=== PATIENT | female | born 1980 | race Caucasian/White ===

== ENCOUNTER 2019-12-29 19:54 | Emergency (ER) | payer MEDICARE, MEDICAID ==
[~2019-12-29] VITALS: Ht 157.5 cm; Wt 97.7 kg
[~2019-12-29 19:54] MED LIST: GLUCOPHAGE500 MG/TAB PO; NAPROSYN 2250 MG/TAB PO; OXYCONTIN 10MG10 MG PO; PERCOCET 325 MG1 TA2 PO; PRINIVIL10 MG PO; ULTRAM 50MG TAB50 MG PO; [UNRECOGNIZED DRUG - REMARK]
[2019-12-29 19:56] VITALS: TEMP 97
[2019-12-29 20:28] LABS: BASO % 0.4 % (0.0-2.0); EOS # 0.2 (0.0-0.7); EOS % 2.6 % (0-4.0); GRAN # 4.3 (1.4-6.5); GRAN % 52.8 % (42.2-75.2); HEMATOCRIT 48.3 % (37.0-47.0); HEMOGLOBIN 17.1 g/dl (12.5-16.0); LYMPH % 37.2 % (20.0-51.0); MEAN CELL VOLUME 84 fl (80.0-100.0); MEAN CORPUSCULAR HEMOGLOBIN 30 pg (27.0-31.0); MEAN CORPUSCULAR HGB CONC 35 g/dl (33.0-37.0); MEAN PLATELET VOLUME 10.4 fl (7.4-10.4); MONO # 0.5 (0.1-0.6); MONO % 6.6 % (1.7-9.3); PLATELET COUNT 281 K/mm3 (130-400); RED BLOOD COUNT 5.72 M/mm3 (4.10-5.30); REDCELL DISTRIBUTION WIDTH-CV 12.2 % (11.5-14.5)
[2019-12-29 20:38] LABS: ALANINE AMINOTRANSFERASE 33 U/L (4-34); ALBUMIN 4.4 gm/dL (3.5-5.0); ALKALINE PHOSPHATASE 54 U/L (50-136); ANION GAP 10 mmol/L (7-16); AST,SGOT 34 U/L (15-37); BILIRUBIN,TOTAL 0.9 mg/dL (0.0-1.0); BLOOD UREA NITROGEN 12 mg/dL (7-17); CALCIUM 9.6 mg/dL (8.4-10.2); CARBON DIOXIDE 23 mmol/L (22-30); CHLORIDE 99 mmol/L (98-107); CREATININE, serum 0.63 (0.52-1.25); GLUCOSE 344 mg/dL (74-106); POTASSIUM 4.3 mmol/L (3.4-5.0); SODIUM 132 mmol/L (137-145); TOTAL PROTEIN 7.6 gm/dL (6.4-8.2)
[2019-12-29 21:08] LABS: TROPONIN-I < 0.012 ng/mL (0.000-0.035)
[2019-12-29] MEDS ORDERED: COMPAZINE 110 MG/TAB PO (22:12)
[2019-12-29] MEDS ORDERED: GLUCOPHAGE500 MG/TAB PO (22:12)
[2019-12-29 22:15] VITALS: BP 128/86; PULSE 89
== END 2019-12-29 22:23 | disposition home or self-care (01) ==
LOC: COL.ER 19:54
PROVIDERS: Emergency Medicine
DX: E11.65 Type 2 diabetes mellitus with hyperglycemia (principal); R07.9 Chest pain, unspecified; R51 Headache; I10 Essential (primary) hypertension; E66.9 Obesity, unspecified; E03.9 Hypothyroidism, unspecified; Z95.0 Presence of cardiac pacemaker; Z79.84 Long term (current) use of oral hypoglycemic drugs
CPT/HCPCS: J0780; J1200; J7030

== ENCOUNTER 2020-02-27 11:12 | Emergency (ER) | payer MEDICARE, MEDICAID ==
[~2020-02-27] VITALS: Ht 157.5 cm; Wt 95.9 kg
[~2020-02-27 11:12] MED LIST changes: +COMPAZINE 110 MG/TAB PO
[2020-02-27 11:18] VITALS: TEMP 97.9
[2020-02-27] MEDS ORDERED: FLEXERIL 1010 MG/TAB PO (12:49)
[2020-02-27] MEDS ORDERED: NAPROSYN500 MG PO (12:49)
[2020-02-27 12:57] VITALS: BP 147/96; PULSE 79
== END 2020-02-27 12:59 | disposition home or self-care (01) ==
LOC: COL.ER 11:12
DX: M54.5 Low back pain (principal); E11.9 Type 2 diabetes mellitus without complications; I10 Essential (primary) hypertension; F32.9 Major depressive disorder, single episode, unspecified; Z98.890 Other specified postprocedural states; Z90.710 Acquired absence of both cervix and uterus; Z79.84 Long term (current) use of oral hypoglycemic drugs
CPT/HCPCS: J1885

== ENCOUNTER 2020-06-17 13:58 | Emergency (ER) | payer MEDICARE, MEDICAID ==
[~2020-06-17] VITALS: Ht 157.5 cm; Wt 97.7 kg
[~2020-06-17 13:58] MED LIST changes: +FLEXERIL 1010 MG/TAB PO; +NAPROSYN500 MG PO
[2020-06-17 14:00] VITALS: TEMP 97.5
[2020-06-17] MEDS ORDERED: IBU400 MG (14:12)
[2020-06-17] MEDS ORDERED: JANUMXR1000-50 (14:13)
[2020-06-17] MEDS ORDERED: SYNTHROID0.05 MG/TA PO (14:14)
[2020-06-17] MEDS ORDERED: VIIBRYD10 MG PO (14:15)
[2020-06-17] MEDS ORDERED: ABILIFY5 MG (14:15)
[2020-06-17 15:04] LABS: BASO % 0.5 % (0.0-2.0); EOS # 0.3 (0.0-0.7); EOS % 4.6 % (0-4.0); GRAN # 2.4 (1.4-6.5); GRAN % 43.7 % (42.2-75.2); HEMATOCRIT 43.5 % (37.0-47.0); HEMOGLOBIN 15.3 g/dl (12.5-16.0); LYMPH # 2.4 (1.2-3.4); LYMPH % 43.1 % (20.0-51.0); MEAN CELL VOLUME 87 fl (80.0-100.0); MEAN CORPUSCULAR HEMOGLOBIN 31 pg (27.0-31.0); MEAN CORPUSCULAR HGB CONC 35 g/dl (33.0-37.0); MEAN PLATELET VOLUME 9.8 fl (7.4-10.4); MONO # 0.4 (0.1-0.6); MONO % 7.9 % (1.7-9.3); PLATELET COUNT 274 K/mm3 (130-400); RED BLOOD COUNT 5.02 M/mm3 (4.10-5.30); REDCELL DISTRIBUTION WIDTH-CV 12.2 % (11.5-14.5)
[2020-06-17 15:21] LABS: ALBUMIN 4.5 gm/dL (3.5-5.0); BILIRUBIN,TOTAL 0.7 mg/dL (0.0-1.0); CALCIUM 9.7 mg/dL (8.4-10.2); CREATININE, serum 0.65 (0.52-1.25); POTASSIUM 4.1 mmol/L (3.4-5.0); TOTAL PROTEIN 7.4 gm/dL (6.4-8.2)
[2020-06-17 15:29] LABS: C-REACTIVE PROTEIN 0.5 mg/dL (0.0-0.9)
[2020-06-17 16:10] VITALS: BP 120/83; PULSE 78
== END 2020-06-17 16:15 | disposition home or self-care (01) ==
LOC: COL.ER 13:58
PROVIDERS: Family Medicine
DX: R51.9 Headache, unspecified (principal); E11.9 Type 2 diabetes mellitus without complications; Z95.0 Presence of cardiac pacemaker; Z87.820 Personal history of traumatic brain injury; Z88.2 Allergy status to sulfonamides; Z79.84 Long term (current) use of oral hypoglycemic drugs
CPT/HCPCS: J1200; J1790; J1885

== ENCOUNTER 2020-07-24 09:00 | Outpatient (RCR) | payer MEDICARE, MEDICAID ==
[~2020-07-24 09:00] MED LIST changes: +ABILIFY5 MG; +IBU400 MG; +JANUMXR1000-50; +SYNTHROID0.05 MG/TA PO; +VIIBRYD10 MG PO
== END 2020-09-10 | disposition home or self-care (01) ==
LOC: WSPT
DX: M72.2 Plantar fascial fibromatosis (principal); M25.562 Pain in left knee

== ENCOUNTER 2020-09-12 19:00 | Emergency (ER) | payer MEDICARE, MEDICAID ==
[~2020-09-12] VITALS: Ht 157.5 cm; Wt 92.7 kg
[2020-09-12 19:18] VITALS: BP 140/101; PULSE 91; TEMP 97.1
== END 2020-09-12 20:30 | disposition left against medical advice (07) ==
LOC: COL.ER 19:00
DX: R73.09 Other abnormal glucose (principal); Z53.21 Procedure and treatment not carried out due to patient leaving prior to being seen by health care provider; Z88.2 Allergy status to sulfonamides; Z79.84 Long term (current) use of oral hypoglycemic drugs

== ENCOUNTER 2021-06-06 12:50 | Emergency (ER) | payer MEDICARE, MEDICAID ==
[~2021-06-06] VITALS: Ht 157.5 cm; Wt 85.0 kg
[2021-06-06 13:20] VITALS: TEMP 98.3
[2021-06-06] MEDS ORDERED: AMOXICILLIN 8751 TAB PO (13:26)
[2021-06-06] MEDS ORDERED: DESYREL 100MG100 MG PO (13:27)
[2021-06-06] MEDS ORDERED: GLUCOPHAGE XR500 M1 PO (13:28)
[2021-06-06] MEDS ORDERED: VICTOZA6 MG/ML (13:28)
[2021-06-06] MEDS ORDERED: PRISTIQ100 MG (13:29)
[2021-06-06 15:29] VITALS: BP 121/75; PULSE 89
== END 2021-06-06 15:22 | disposition home or self-care (01) ==
LOC: COL.ER 12:50
DX: J06.9 Acute upper respiratory infection, unspecified (principal); E11.9 Type 2 diabetes mellitus without complications; I10 Essential (primary) hypertension; E07.9 Disorder of thyroid, unspecified; F32.9 Major depressive disorder, single episode, unspecified; Z20.822 Contact with and (suspected) exposure to COVID-19; Z79.84 Long term (current) use of oral hypoglycemic drugs; Z79.890 Hormone replacement therapy; Z79.899 Other long term (current) drug therapy
CPT/HCPCS: J1885

== ENCOUNTER 2024-02-27 15:16 | Inpatient (IN) | payer MEDICARE, MEDICAID ==
[~2024-02-27] VITALS: Ht 157.5 cm; Wt 95.4 kg
[~2024-02-27 15:16] MED LIST changes: +AMOXICILLIN 8751 TAB PO; +DESYREL 100MG100 MG PO; +GLUCOPHAGE XR500 M1 PO; +PRISTIQ100 MG; +VICTOZA6 MG/ML
[2024-02-27] MEDS ORDERED: Morphine 4 MG/ML VIAL IV ONE (15:45)
[2024-02-27] MEDS ORDERED: Ondansetron 4 MG/2 ML VIAL IV ONE (15:45)
[2024-02-27] MEDS ORDERED: LR 1,000 ML IV ONE ×2 (15:45→18:30)
[2024-02-27 16:06] LABS: COLLECTION METHOD CLEAN CATCH
[2024-02-27 16:18] LABS: PH 5.5 (5.0-8.5); URINE APPEARANCE CLEAR (CLEAR/HAZY); URINE BLOOD NEGATIVE (NEGATIVE); URINE COLOR YELLOW (YELLOW); URINE GLUCOSE 3+ (NEGATIVE); URINE KETONE 2+ (NEGATIVE); URINE NITRATE NEGATIVE (NEGATIVE); URINE PROTEIN(semi-quant) NEGATIVE (NEGATIVE); URINE UROBILINOGEN 0.2 E.U/dL (0.2-1.0)
[2024-02-27 16:26] LABS: BASO % 0.6 % (0.0-2.0); EOS # 0.1 K/mm3 (0.0-0.7); EOS % 1.7 % (0.0-4.0); GRAN % 55.5 % (42.2-75.2); HEMOGLOBIN 16.7 g/dl (12.5-16.0); LYMPH # 2.5 K/mm3 (1.2-3.4); MEAN CELL VOLUME 86 fl (80.0-100.0); MEAN CORPUSCULAR HEMOGLOBIN 29 pg (27-31); MEAN CORPUSCULAR HGB CONC 34 g/dl (33.0-37.0); MEAN PLATELET VOLUME 10.2 fl (7.4-10.4); MONO # 0.5 K/mm3 (0.1-0.6); MONO % 6.9 % (1.7-9.3); PLATELET COUNT 316 K/mm3 (130-400); REDCELL DISTRIBUTION WIDTH-CV 12.2 % (11.5-14.5)
[2024-02-27 16:35] LABS: URINE BACTERIA OCCASIONAL /hpf (NONE SEEN)
[2024-02-27 16:40] LABS: ALBUMIN 3.6 g/dL (3.5-5.0); BILIRUBIN,TOTAL 0.9 mg/dL (0.2-1.2); CREATININE, serum 1.03 mg/dL (0.57-1.11); POTASSIUM 4.1 mEq/L (3.5-4.5); TOTAL PROTEIN 6.8 g/dl (6.2-8.1)
[2024-02-27 17:00] LABS: TSH w REFLEX 4.529 uIU/mL (0.350-4.940)
[2024-02-27] MEDS ORDERED: Insulin Human Regular/NS 100 ML IV ONE (17:30)
[2024-02-27 17:45] VITALS: BP 132/93; PULSE 88
[2024-02-27] MEDS ORDERED: D5 1/2 NS 1,000 ML IV SCH (18:00)
[2024-02-27] MEDS ORDERED: NS 1,000 ML IV SCH (18:00)
[2024-02-27] MEDS ORDERED: Insulin Human Regular/NS 100 ML IV SCH (18:00)
[2024-02-27] MEDS ORDERED: Iohexol 300 - 100 ML VIAL IV ONE (18:12)
[2024-02-27] MEDS ORDERED: NS 100 ML IV.SOLN. IY SCH (18:13)
[2024-02-27] MEDS ORDERED: Ondansetron 4 MG/2 ML VIAL IV PRN (18:30)
[2024-02-27] MEDS ORDERED: Lisinopril 10 MG TAB PO SCH (18:45)
[2024-02-27 19:40] VITALS: BP 111/77; PULSE 87
--- NOTE | 2024-02-27 20:35 | NUR ---
PT ARRIVED FROM ER VIA STRETCHER. AWAKE, AAOX3, MOVED TO ICU BED AND CONNECTED TO MONITORING. PT IN NO ACUTE DISTRESS AT THIS TIME. INSULIN INFUSING AT 7 UN/HR TO R F/A PIV. PT REPORTS ABDOMEN FEELING BETTER, BUT STILL HAVING SOME INTERMITTENT CRAMPS. PT STATES UNDERSTAND OF TREATMENT PLAN AT THIS TIME, INCLUDING NPO STATUS.
[2024-02-27 20:38] VITALS: BP 127/96; PULSE 82; TEMP 99.1
[2024-02-27 20:41] LABS: MAGNESIUM 1.8 mg/dL (1.6-2.6); PHOSPHOROUS 3.6 mg/dL (2.3-4.7)
[2024-02-27] MEDS ORDERED: Atorvastatin 20 MG TAB PO SCH (21:00)
[2024-02-27] MEDS ORDERED: Ciprofloxacin 500 MG TAB PO SCH (21:00)
[2024-02-27 21:17] LABS: CALCIUM 9.5 mg/dL (8.4-10.2); CREATININE, serum 0.82 mg/dL (0.57-1.11); POTASSIUM 3.9 mEq/L (3.5-4.5)
[2024-02-27] MEDS ORDERED: Insulin Glargine-ygfn (Lantus) SQ SCH (21:46)
[2024-02-27] MEDS ORDERED: Dextrose (Glucose) 15 GM (4 x 3.75 GM) Chewable TABLET PACK PO PRN (22:15)
[2024-02-27] MEDS ORDERED: Glucagon 1 MG VIAL IM PRN (22:15)
[2024-02-27] MEDS ORDERED: Dextrose 50% Water 25 GM/50 ML SYRINGE IV PRN (22:15)
[2024-02-28] VITALS: BP 116/80; PULSE 86; TEMP 98.5
[2024-02-28] MEDS ORDERED: Insulin Lispro (HumaLOG) SQ SCH
--- NOTE | 2024-02-28 00:30 | NUR ---
PT LABS REMAINING STABLE AFTER INSULIN DRIP DISCONTINUED. HAVING SNACK OF CRACKERS AND SUGAR FREE JELLO AT THIS TIME, TOLERATING WELL.
[2024-02-28 00:38] LABS: CALCIUM 8.6 mg/dL (8.4-10.2); CREATININE, serum 0.78 mg/dL (0.57-1.11); POTASSIUM 3.9 mEq/L (3.5-4.5)
[2024-02-28 04:00] VITALS: BP 123/87; PULSE 68; TEMP 98.6
--- NOTE | 2024-02-28 07:00 | NUR ---
REPORT RECEIVED FROM ROULA CRUZ. PT RESTING IN BED, VSS. FLUIDS INFUSING ORDERED TO PERIPHERAL IV IN R FOREARM. PT IS ALERT AND ORIENTED, DENIES NEEDS AT THIS TIME, CALL LIGHT IN REACH.
[2024-02-28 08:00] VITALS: BP 104/79; PULSE 67; TEMP 98
[2024-02-28 09:06] LABS: CALCIUM 8.6 mg/dL (8.4-10.2); CREATININE, serum 0.71 mg/dL (0.57-1.11); POTASSIUM 3.7 mEq/L (3.5-4.5)
[2024-02-28] MEDS ORDERED: CIPRO 500MG TA500 MG PO (10:26)
[2024-02-28] MEDS ORDERED: JANUMXR500-50 PO (10:28)
[2024-02-28] MEDS ORDERED: SYNTHROID0.05 MG/TA PO (10:31)
--- NOTE | 2024-02-28 11:13 | NUR ---
SW met with patient to complete initial assessment for discharge planning. Patient verified that she lives in [place] with her significant other Barak Irizarry ([phone]). Patient states that she has a 9 year old son that lives with them as well. Patient states she has removed her mother Ximena from her contact list and is estranged from her for over a year. Patient states she completed a DPOA through her insurance naming her Significant other Barak and her father Timbo House ([phone]) as her agents. Patient reports that she is establishing with [facility] but has not had her first appointment. [facility] and denies using any DME. Patient is covered by [facility] and [place] Medicaid. She states she also has [facility] through the state. Patient is discharging today to home with Barak driving her. Discharge plan: Home
--- NOTE | 2024-02-28 13:12 | NUR ---
DISCHARGE PACKET GIVEN TO PT AND REVIEWED. PT INSTRUCTED TO IT PROJECT LEAD PRESCRIPTIONS AND TAKE DIRECTED AND TO FOLLOW UP W/ PCP. PT VERBALIZED UNDERSTANDING. IV'S TO R FOREARM DISCONTINUED. PT DISCHARGED AMBULATORY TO HOME W/ AND SON AT 1312.
== END 2024-02-28 13:12 | disposition home or self-care (01) | DRG 639 ==
LOC: COL.ER 15:16 → ICU 18:11
PROVIDERS: Emergency Medicine; Nurse Practitioner Family; ADMIT Internal Medicine
DX: E11.10 Type 2 diabetes mellitus with ketoacidosis without coma (principal); K52.9 Noninfective gastroenteritis and colitis, unspecified; I10 Essential (primary) hypertension; E11.9 Type 2 diabetes mellitus without complications; E03.9 Hypothyroidism, unspecified; F32.A Depression, unspecified; E78.5 Hyperlipidemia, unspecified; Z68.37 Body mass index [BMI] 37.0-37.9, adult; E66.9 Obesity, unspecified; Z90.710 Acquired absence of both cervix and uterus; Z88.2 Allergy status to sulfonamides
CPT/HCPCS: J1815; J2270; J2405; J7030; J7120; Q9967